=== PATIENT | female | born 1980 | race African-American/Black ===

== ENCOUNTER 2016-10-09 09:16 | Emergency (ER) | payer MEDICAID ==
[~2016-10-09] VITALS: Ht 170.2 cm; Wt 110.0 kg
[2016-10-09] MEDS ORDERED: LORAZEPAM 2 MG INJ ONE (09:23)
[2016-10-09 09:28] VITALS: Ht 170.2 cm; Wt 110.0 kg
[2016-10-09] MEDS: LORAZEPAM 2 MG INJ IM ONE ×2 (09:39→11:22)
[2016-10-09] MEDS ORDERED: ONDANSETRON 4 MG INJ IV STA (09:55)
--- NOTE | 2016-10-09 09:59 | RADRPT ---
PROCEDURE: CT Brain without contrast. CLINICAL INDICATION: Seizure. Altered mental status TECHNIQUE: A multiplanar CT of the brain was performed on a CT scanner utilizing axial imaging fro m the skull base through the vertex without IV contrast. The CTDIvol is 43.38 mGy and the DLP is 74 0.23 mGycm. One or more of the following dose reduction techniques were utilized: Automated exposu re control, adjustment of the mA and/or kV according to patient size, use of iterative reconstructio n technique. COMPARISON: None FINDINGS: Right frontal ventriculostomy catheter in place traversing the frontal horn of the right lateral eliseo tricle with the distal tip at the level of the foramen of Monro on the left. The ventricles are norm al in size. Right parietal calvarial millie hole. The brain parenchyma is normal attenuation morphology with preservation of juarez white differentiatio n and age appropriate size of the ventricles and subarachnoid spaces. The basal cisterns, posterior fossa contents, brainstem, craniocervical junction, orbits, pituitary axis, paranasal sinuses, mastoid air cells, and calvarium are unremarkable. IMPRESSION: 1. No intracranial hemorrhage or acute intracranial abnormality. 2. Right frontal ventriculostomy catheter in place with distal tip at the level of the foramen of M onro . 3. No hydrocephalus or gross structural abnormality. RPTAT:AAJJ Physician Swapnil Date Time Electronically viewed and signed by Physician Swapnil on 10/09/2016 09:58 BARBARA/
[2016-10-09] MEDS ORDERED: ONDANSETRON (ODT) 4 MG TAB ODT STA (10:12)
[2016-10-09] MEDS ORDERED: LORA1TAB PO (10:44)
--- NOTE | 2016-10-09 10:48 | ERD ---
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 Patient is presenting with a seizure prior to arrival. The patient's boyfriend dropped her off in the left. The patient was wheeled in from the ambulance bay in a wheelchair actively having a seizure. Patient seizure activity markedly resembled a pseudoseizure. The patient was able to stand up out of the car and transferring to a wheelchair on her own. She would answer periodic questions during her initial assessment. She would stop shaking and make comments to the staff and start shaking again. The patient does look very familiar to me that they can see her in the past with diagnosis of pseudoseizure. ROS All systems reviewed and are negative except as per history of present illness. Medications Home Meds Active Scripts Lorazepam* (Lorazepam*) 1 Mg Tablet, 1 MG PO Q8H Y for SEIZURE OR ANXIETY, #15 TAB Prov:GERMAN CARTAGENA DO 10/09/16 Allergies Allergies: Coded Allergies: No Known Allergy (Unverified , 10/09/16) FmHx Family History: No coronary disease Physical Exam Vitals Vital Signs Date Time Temp Pulse Resp B/P Pulse Ox O2 Delivery O2 Flow Rate FiO2 10/09/16 09:28 98.1 90 20 102/67 99 Physical Exam Const: Well-developed, well-nourished Head: Atraumatic, normocephalic Eyes: Normal Conjunctiva, PERRLA, EOMI, normal sclera, no nystagmus ENT: Normal External Ears, Nose and Mouth, moist mucus membranes. Neck: Full range of motion. No meningismus, no lymphadenopathy. Resp: Clear to auscultation bilaterally, no wheezing, rhonchi, rales Cardio: Regular rate and rhythm, no murmurs, S1 S2 present Abd: Soft, non tender x 4, non distended. Normal bowel sounds, no guarding or rebound, no pulsitile abdominal masses or bruits Skin: No petechiae or rashes, no ecchymosis , no maculopapular rash Back: No midline or flank tenderness Ext: No cyanosis, or edema, FROM x 4, normal inspection, neurovascularly intact x 4 Neur: Patient acting as described above in the history. She is having some left eye upward gaze however when you roll her head side to side her eyes will stop looking up and left and look straight ahead into the right and she will spontaneously move them back to the left upper quadrant., Holding her right hand above her face and if dropped it should hit her in the face however it falls above her head each time .,she is moving all fours Psych: Normal Mood and Affect Results 24 hrs Current Medications Medications (Trade) Dose Ordered Sig/Travis Route PRN Reason Start Time Stop Time Status Last Admin Dose Admin Lorazepam (Ativan) 2 mg ONCE ONCE IM 10/09/16 09:30 10/09/16 09:31 DC Ondansetron HCl (Zofran Inj) 4 mg ONCE STAT IV 10/09/16 09:55 10/09/16 09:56 DC 10/09/16 10:07 Ondansetron HCl (Zofran Odt) 4 mg ONCE STAT ODT 10/09/16 10:12 10/09/16 10:13 DC Procedures/MDM PROCEDURE: CT Brain without contrast. CLINICAL INDICATION: Seizure. Altered mental status TECHNIQUE: A multiplanar CT of the brain was performed on a CT scanner utilizing axial imaging from the skull base through the vertex without IV contrast. The CTDIvol is 43.38 mGy and the DLP is 740.23 mGycm. One or more of the following dose reduction techniques were utilized: Automated exposure control, adjustment of the mA and/or kV according to patient size, use of iterative reconstruction technique. COMPARISON: None FINDINGS: Right frontal ventriculostomy catheter in place traversing the frontal horn of the right lateral ventricle with the distal tip at the level of the foramen of Monro on the left. The ventricles are normal in size. Right parietal calvarial millie hole. The brain parenchyma is normal attenuation morphology with preservation of juarez white differentiation and age appropriate size of the ventricles and subarachnoid spaces. The basal cisterns, posterior fossa contents, brainstem, craniocervical junction , orbits, pituitary axis, paranasal sinuses, mastoid air cells, and calvarium are unremarkable. IMPRESSION: 1. No intracranial hemorrhage or acute intracranial abnormality. 2. Right frontal ventriculostomy catheter in place with distal tip at the level of the foramen of Monro . 3. No hydrocephalus or gross structural abnormality. RPTAT:AAJJ Steven Mathew Physician Date Time Electronically viewed and signed by Steven Mathew Physician on 10/09/2016 09:58 BARBARA/ CC: GERMAN CARTAGENA DO Patient was given Ativan and seizure to stop. CT scan does not show any signs of hydrocephalus and her shunt looks intact. Discussed the patient follow-up in advised her to go to [facility] or other [facility] as her doctor is not returning her calls and will not see her anymore. i truly feel this is a pseudoseizure Departure Diagnosis: Primary Impression: Seizure disorder Additional Impression: Pseudoseizure Condition: Stable Patient Instructions: Seizure, Recurrent [Adult] Referrals: NO PRIMARY,CARE PHYSICIAN (PCP) GERMAN CARTAGENA DO October 09, 2016 10:48
[2016-10-09] MEDS ORDERED: TOPI25CA PO (12:34)
[2016-10-09] MEDS ORDERED: LEVE100018 PO (12:34)
[2016-10-09 12:50] VITALS: BP 139/78; PULSE 89; RESP 20
== END 2016-10-09 12:50 | disposition home or self-care (01) ==
LOC: E/R 09:16
DX: G40.909 Epilepsy, unspecified, not intractable, without status epilepticus (principal)
CPT/HCPCS: 70450; 96372; 96374; 96376; J2060; J2405; Z7502; Z7610

== ENCOUNTER 2016-11-14 12:59 | Emergency (ER) | payer MEDICAID, OTHER ==
[~2016-11-14] VITALS: Ht 167.6 cm; Wt 135.0 kg
[~2016-11-14 12:59] MED LIST: LEVE100018 PO; LORA1TAB PO; TOPI25CA PO
[2016-11-14 13:07] VITALS: Ht 167.6 cm; Wt 135.0 kg
[2016-11-14] MEDS ORDERED: OXYC-279 PO ×2 (15:19→16:07)
[2016-11-14] MEDS ORDERED: TOPI25CA PO (15:51)
[2016-11-14] MEDS ORDERED: LEVE500T8 PO (15:54)
[2016-11-14] MEDS ORDERED: ONDANSETRON (ODT) 4 MG TAB ODT STA (15:59)
[2016-11-14] MEDS ORDERED: HYDROmorphONE 1 MG/ML SYG IM STA (15:59)
[2016-11-14] MEDS ORDERED: ONDA4TAB8 PO (16:07)
[2016-11-14 16:25] VITALS: BP 123/73; PULSE 75; RESP 16; TEMP 97.5
--- NOTE | 2016-11-14 23:03 | ERD ---
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 She denies blurry vision, no slurred speech, no chest pain or shortness of breath. Patient does complain of nausea but denies vomiting. ROS All systems reviewed and are negative except as per history of present illness. Medications Home Meds Active Scripts Ondansetron Hcl* (Zofran*) 4 Mg Tablet, 4 MG PO Q6H for NAUSEA AND/OR VOMITING, #15 TAB Prov:NAVIN PHAM MD 11/14/16 Oxycodone HCl/Acetaminophen (Percocet 5-325 mg Tablet) 1 Each Tablet, 1 EACH PO TID for PAIN, #12 TAB Prov:NAVIN PHAM MD 11/14/16 Oxycodone HCl/Acetaminophen (Percocet 5-325 mg Tablet) 1 Each Tablet, 1 EACH PO TID for PAIN, #12 TAB Prov:NAVIN PHAM MD 11/14/16 Lorazepam* (Lorazepam*) 1 Mg Tablet, 1 MG PO Q8H Y for SEIZURE OR ANXIETY, #15 TAB Prov:GERMAN CARTAGENA DO 10/09/16 Reported Medications Levetiracetam* (Levetiracetam*) 500 Mg Tablet, 500 MG PO BID, TAB 11/14/16 Topiramate* (Topamax*) 25 Mg Cap.sprink, 25 MG PO BID, CAP 11/14/16 Discontinued Reported Medications Topiramate* (Topamax*) 25 Mg Cap.sprink, 50 MG PO BID, CAP 10/09/16 Levetiracetam* (Keppra*) 1,000 Mg Tablet, 2000 MG PO BID, TAB 10/09/16 Allergies Allergies: Coded Allergies: No Known Allergy (Unverified , 11/14/16) PMhx/Soc Chronic recurrent headaches, 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 History of Surgery: Yes (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) Hx Neurological Disorder: Yes (sz) Hx Miscellaneous Medical Probl: Yes (arthritis R hip) Hx Alcohol Use: No Hx Substance Use: No Hx Tobacco Use: No Smoking Status: Never smoker FmHx Family History: No diabetes Physical Exam Vitals Vital Signs Date Time Temp Pulse Resp B/P Pulse Ox O2 Delivery O2 Flow Rate FiO2 11/14/16 16:25 97.5 75 16 123/73 100 Room Air 11/14/16 13:07 98.3 99 20 134/73 96 Physical Exam GENERAL: Well-developed, well-nourished, well-hydrated, in no apparent distress , looks nontoxic in appearance HEENT: Moist mucous membranes, pink conjunctiva, no cervical spine tenderness or step-off deformities, no goiter, no jaundice or icterus, extraocular movements intact without pain. No submandibular induration, and no pharyngeal erythema NEURO: Alert and oriented 3, cranial nerves II through XII intact bilaterally, pupils equal round reactive to light, no focal deficits or facial asymmetry, sensation intact distally Strength 5/5 in upper and lower extremities bilaterally CARDIAC: Regular rate and rhythm, no murmurs rubs or gallops LUNGS: Clear bilaterally no wheezing crackles or stridor ABDOMEN: Soft nontender, no guarding, no rigidity, no rebound, no psoas sign no obturator sign. Normoactive bowel sounds SKIN: Warm and dry to touch, no abrasions, contusions, or hematomas, no lacerations, no ecchymosis, no target lesions, and without ulcers EXTREMITIES: No clubbing cyanosis or edema, calves are bilaterally symmetrical, no Homans sign, no popliteal cord sign. Distal pulses equal and bilateral PSYCH: Normal affect without agitation or irritability Results 24 hrs Current Medications Medications (Trade) Dose Ordered Sig/Travis Route PRN Reason Start Time Stop Time Status Last Admin Dose Admin Hydromorphone HCl (Dilaudid) 1 mg ONCE STAT IM 11/14/16 15:59 11/14/16 16:01 DC 11/14/16 16:10 Ondansetron HCl (Zofran Odt) 4 mg ONCE STAT ODT 11/14/16 15:59 11/14/16 16:01 DC 11/14/16 16:08 Procedures/MDM I administered hydromorphone 1 mg intramuscular injection and Zofran 4 mg ODT sublingual for her symptoms with improvement. I reviewed the brain CT which was performed last month and it was unremarkable. Further imaging deferred to her PMD. Patient's symptoms resolved completely and she feels much better. Patient feels much better at this time, and vital signs are normal, symptoms have improved. I did give strict instructions to return to the ED if symptoms continue or worsen, patient will otherwise follow-up with primary care physician. Patient understood instructions and agreed to plan. Disclaimer: Inadvertent spelling and grammatical errors are likely due to EHR/ dictation software use and do not reflect on the overall quality of patient care. Also, please note that the electronic time recorded on this note does not necessarily reflect the actual time of the patient encounter. Departure Diagnosis: Primary Impression: Headache Headache type: tension-type Headache chronicity pattern: acute headache Intractability: not intractable Qualified Code: G44.209 - Acute non intractable tension-type headache Condition: Good Patient Instructions: Headache, Tension Referrals: MAMADOU MA MD (PCP) NAVIN PHAM MD Nov 14, 2016 23:03
== END 2016-11-14 16:25 | disposition home or self-care (01) ==
LOC: E/R 12:59
DX: G44.209 Tension-type headache, unspecified, not intractable (principal); R40.2252 Coma scale, best verbal response, oriented, at arrival to emergency department
CPT/HCPCS: J1170; Z7610; 96372

== ENCOUNTER 2016-11-28 19:48 | Emergency (ER) | payer SELFPAY ==
[~2016-11-28] VITALS: Ht 170.2 cm; Wt 133.5 kg
[~2016-11-28 19:48] MED LIST changes: -LEVE100018 PO; +LEVE500T8 PO; +ONDA4TAB8 PO; +OXYC-279 PO
[2016-11-28 20:23] VITALS: Ht 170.2 cm; Wt 133.5 kg
== END 2016-11-28 23:18 | disposition left against medical advice (07) ==
LOC: FTE 19:48
DX: Z53.21 Procedure and treatment not carried out due to patient leaving prior to being seen by health care provider (principal)